=== PATIENT | female | born 1970 | race Caucasian/White ===

== ENCOUNTER 2016-09-22 17:11 | Emergency (ER) | payer OTHER ==
[~2016-09-22] VITALS: Ht 175.3 cm; Wt 100.0 kg
[~2016-09-22 17:11] MED LIST: AUGMENTIN875 MG PO; AZELASTINE137 MCG/0. BOTH NARES; Augmentin PO; BRAIN MIGHT-DH1 EACH PO; CALCIUM 500 MG1 EACH PO; CALCIUM 600 +1 EAC7 PO; CIPRO500 MG PO; CORTEF10 MG PO; DAILY VITE1 EAC1 PO; DEPAKOTE ER500 MG PO; DOCUSATE SODIU100 M1 PO; FISH OIL 1,0001 EAC7 PO; FLEXERIL10 MG PO; FLONASE16 G1 BOTH NARES; FLUOXETINE HCL40 MG PO; HYDROCORTISONE10 MG PO; KEPPRA XR500 MG PO; Keppra PO; LEVETIRACETAM750 MG PO; LEVOTHYROXINE50 MCG PO; LEVOTHYROXINE88 MCG PO; LIDODERM 5% P1 PATCH TD; LISINOPRIL20 MG PO; LISINOPRIL40 MG PO; LOVASTATIN20 MG PO; LUMIGAN 0.50 DROP/22 BOTH EYES; MULTI-DAY VITA1 EACH PO; NAPROSYN500 MG PO; NASONEX17 GM BOTH NARES; OXYCODONE HCL5 MG PO; PERCOCET 5/31 TABLET PO; PRINIVIL20 MG PO; PROAIR HFA8.5 GM IH; PROZAC20 MG PO; RISPERDAL0.5 MG PO; SYNTHROID50 MCG PO; SYNTHROID88 MCG PO; TAMIFLU75 MG PO; TEGRETOL-XR,CA200 MG PO; TEGRETOL200 MG PO; TEGretol PO; VITAMIN B-6100 MG PO; Vibramycin, Doryx PO; ZESTRIL20 MG PO; ZETIA10 MG PO; ZOFRAN4 MG PO; ZOFRAN8 MG PO; ZYRTEC10 M2 PO
[2016-09-22 18:50] LABS: INFLUENZA A VIRAL ANTIGEN NEGATIVE; INFLUENZA B VIRAL ANTIGEN NEGATIVE
[2016-09-22] MEDS ORDERED: ZOFRAN ODT4 MG PO (19:18)
[2016-09-22 19:27] LABS: POINT-OF-CARE METER ID UU13113800
[2016-09-22 20:44] LABS: HEMATOCRIT 34.5 % (36.0-46.0); MCH 31.7 PG (29.0-34.0); MCHC 32.8 G/DL (30.0-36.0); MCV 96.6 FL (83-99); MEAN PLAT.VOLUME 9.8 uM^3 (9.5-12.4); PLATELET COUNT 231 K/uL (156-360); RBC DIS.WIDTH-CV 12.8 % (11.8-14.6); RED BLOOD COUNT 3.57 M/uL (3.80-5.20); WHITE BLOOD COUNT 6.3 K/uL (4.1-10.2)
[2016-09-22 21:01] LABS: TROP-I INTERPRETATION NEGATIVE; TROPONIN-I 0.05 ng/mL (0.0-0.30)
[2016-09-22 21:06] LABS: CHLORIDE 102 mEq/L (99-109); POTASSIUM 3.8 mEq/L (3.7-5.4); SODIUM 140 mEq/L (136-147)
[2016-09-22 21:08] LABS: GLUCOSE 81 mg/dL (70-99)
[2016-09-22 21:09] LABS: ANION GAP 11 MEQ/L (2-14)
[2016-09-22 21:10] LABS: TOTAL BILIRUBIN 0.1 mg/dL (0.0-1.0)
[2016-09-22 21:12] LABS: ALKALINE PHOSPHATASE 124 IU/L (3-129); GFR ESTIMATE (CALCULATED) > 59 mL/min/
[2016-09-22 21:13] LABS: UREA NITROGEN (BUN) 13 mg/dL (9-23)
[2016-09-22 21:15] LABS: LIPASE 17 U/L (1.0-51.0)
[2016-09-22 21:21] LABS: QUANTITATIVE HCG < 4.0 MIU/ML
[2016-09-22] MEDS ORDERED: LOVASTATIN40 MG PO (23:17)
[2016-09-22] MEDS ORDERED: DEPAKOTE ER500 MG PO (23:19)
[2016-09-22] MEDS ORDERED: LEVETIRACETAM750 M1 PO (23:20)
[2016-09-22 23:41] LABS: TROP-I INTERPRETATION NEGATIVE; TROPONIN-I 0.03 ng/mL (0.0-0.30)
[2016-09-22 23:59] LABS: ADD MIUA? YES; COLOR YELLOW ((YELLOW))
[2016-09-23] LABS: BILIRUBIN NEGATIVE; BLOOD SMALL; GLUCOSE (STRIP) NEGATIVE; KETONES NEGATIVE; LEUKOCYTES NEGATIVE; NITRITE NEGATIVE; PROTEIN (STRIP) NEGATIVE; UROBILINOGEN 0.2 MG/DL (0.2-1.0)
[2016-09-23 00:37] LABS: EPITHELIAL CELLS RARE /HPF; RED BLOOD CELLS 0-5 /HPF (0-5); WHITE BLOOD CELLS RARE /HPF (0-5)
[2016-09-23 00:38] LABS: BACTERIA NONE SEEN /HPF; CASTS NONE SEEN /LPF; CRYSTALS NONE SEEN; MUCUS NONE SEEN /LPF
[2016-09-23 00:42] VITALS: BP 149/90
[2016-09-23] MEDS ORDERED: ZOFRAN ODT4 MG PO (00:46)
== END 2016-09-23 00:54 | disposition home or self-care (01) ==
LOC: EME → EDBD 17:11 → EME 17:11
PROVIDERS: Physician Assistant Medical
DX: R07.9 Chest pain, unspecified (principal); R11.2 Nausea with vomiting, unspecified; I10 Essential (primary) hypertension; E03.9 Hypothyroidism, unspecified; E78.5 Hyperlipidemia, unspecified; E11.9 Type 2 diabetes mellitus without complications
CPT/HCPCS: 80053; 81003; 82948; 83690; 84484; 84702; 85027; 87502; 87651 90; 93005; 99281; 99284; J7030

== ENCOUNTER 2016-12-29 15:47 | Emergency (ER) | payer OTHER ==
[~2016-12-29] VITALS: Ht 180.3 cm; Wt 95.5 kg
[~2016-12-29 15:47] MED LIST changes: +LEVETIRACETAM750 M1 PO; +LOVASTATIN40 MG PO; +ZOFRAN ODT4 MG PO
[2016-12-29 16:37] LABS: POINT-OF-CARE METER ID UU13113778
[2016-12-29 16:45] LABS: HEMATOCRIT 38.4 % (36.0-46.0); MCH 31.5 PG (29.0-34.0); MCHC 34.4 G/DL (30.0-36.0); MEAN PLAT.VOLUME 9.7 uM^3 (9.5-12.4); PLATELET COUNT 265 K/uL (156-360); RBC DIS.WIDTH-CV 11.8 % (11.8-14.6); RBC DIS.WIDTH-SD 39.8 % (39-53); WHITE BLOOD COUNT 7.9 K/uL (4.1-10.2)
[2016-12-29 16:50] LABS: ADD MIUA? YES; BILIRUBIN NEGATIVE; BLOOD MODERATE; COLOR YELLOW ((YELLOW)); GLUCOSE (STRIP) NEGATIVE; KETONES 5; LEUKOCYTES NEGATIVE; NITRITE NEGATIVE; PROTEIN (STRIP) NEGATIVE; SPECIFIC GRAVITY 1.017 (1.000-1.030); UROBILINOGEN 0.2 MG/DL (0.2-1.0)
[2016-12-29 16:54] LABS: CHLORIDE 92 mEq/L (99-109); POTASSIUM 5.4 mEq/L (3.7-5.4); SODIUM 132 mEq/L (136-147)
[2016-12-29 16:55] LABS: MCV 91.6 FL (83-99); RED BLOOD COUNT 4.19 M/uL (3.80-5.20)
[2016-12-29 16:56] LABS: GLUCOSE 114 mg/dL (70-99)
[2016-12-29 16:57] LABS: ANION GAP 14 MEQ/L (2-14)
[2016-12-29 16:58] LABS: TOTAL BILIRUBIN 0.3 mg/dL (0.0-1.0)
[2016-12-29 16:59] LABS: ALKALINE PHOSPHATASE 81 IU/L (3-129)
[2016-12-29 17:00] LABS: GFR ESTIMATE (CALCULATED) > 59 mL/min/
[2016-12-29 17:01] LABS: UREA NITROGEN (BUN) 14 mg/dL (9-23)
[2016-12-29 17:06] LABS: BACTERIA RARE /HPF; EPITHELIAL CELLS 1+ /HPF; MUCUS NONE SEEN /LPF; RED BLOOD CELLS 0-5 /HPF (0-5); UCUL ADDED? NO; WHITE BLOOD CELLS 0-5 /HPF (0-5)
[2016-12-29 17:08] LABS: QUANTITATIVE HCG < 4.0 MIU/ML
[2016-12-29 17:51] LABS: LIPASE 20 U/L (1.0-51.0)
[2016-12-29] MEDS ORDERED: ZOFRAN4 MG PO (21:34)
[2016-12-29 22:31] VITALS: BP 132/74
== END 2016-12-29 22:34 | disposition home or self-care (01) ==
LOC: EME 15:47
DX: E05.90 Thyrotoxicosis, unspecified without thyrotoxic crisis or storm (principal); R11.2 Nausea with vomiting, unspecified; E87.1 Hypo-osmolality and hyponatremia; R10.9 Unspecified abdominal pain; I10 Essential (primary) hypertension; E03.9 Hypothyroidism, unspecified; E78.5 Hyperlipidemia, unspecified; F32.9 Major depressive disorder, single episode, unspecified; J45.909 Unspecified asthma, uncomplicated; G40.909 Epilepsy, unspecified, not intractable, without status epilepticus
CPT/HCPCS: 74177; 80053; 81003; 82948; 83690; 84443; 84702; 85027; 99281; 99284; J2405; J7030

== ENCOUNTER 2017-06-15 01:40 | Emergency (ER) | payer OTHER ==
[~2017-06-15] VITALS: Ht 180.3 cm; Wt 94.1 kg
[2017-06-15 03:32] LABS: EOSINOPHIL (%) 2.8 % (0-5); EOSINOPHIL COUNT 0.2 K/uL (0-0.3); HEMATOCRIT 32.4 % (36.0-46.0); IMMATURE GRANULOCYTE (%) 0.3 % (0.0-0.7); INSTRUMENT ABS NEUTROPHIL CT 2.2 K/uL; LYMPHOCYTE COUNT 3.1 K/uL (1.0-2.8); MCH 31.7 PG (29.0-34.0); MCV 95.9 FL (83-99); MEAN PLAT.VOLUME 9.6 uM^3 (9.5-12.4); MONOCYTE COUNT 0.7 K/uL (0-0.8); NEUTROPHIL (%) 35.5 % (45-76); NEUTROPHIL COUNT 2.2 K/uL (1.8-6.4); PLATELET COUNT 220 K/uL (156-360); RBC DIS.WIDTH-CV 12.1 % (11.8-14.6); RBC DIS.WIDTH-SD 42.6 % (39-53); RED BLOOD COUNT 3.38 M/uL (3.80-5.20); WHITE BLOOD COUNT 6.1 K/uL (4.1-10.2)
[2017-06-15 03:41] LABS: CHLORIDE 100 mEq/L (99-109); POTASSIUM 3.6 mEq/L (3.7-5.4); SODIUM 138 mEq/L (136-147)
[2017-06-15 03:43] LABS: GLUCOSE 122 mg/dL (70-99)
[2017-06-15 03:44] LABS: ANION GAP 11 MEQ/L (2-14)
[2017-06-15 03:46] LABS: GFR ESTIMATE (CALCULATED) > 59 mL/min/
[2017-06-15 03:47] LABS: UREA NITROGEN (BUN) 15 mg/dL (9-23)
[2017-06-15 03:49] LABS: CREATINE KINASE 118 IU/L (1-294)
[2017-06-15 06:05] VITALS: BP 130/70
== END 2017-06-15 06:06 | disposition home or self-care (01) ==
LOC: EME → EDBD 01:40 → EME 06:06
PROVIDERS: Emergency Medicine
DX: G40.909 Epilepsy, unspecified, not intractable, without status epilepticus (principal); J45.909 Unspecified asthma, uncomplicated; I10 Essential (primary) hypertension; F32.9 Major depressive disorder, single episode, unspecified; F41.9 Anxiety disorder, unspecified; E03.9 Hypothyroidism, unspecified; Z87.820 Personal history of traumatic brain injury
CPT/HCPCS: 70450; 80048; 80164; 82550; 85025; 99281; 99283

== ENCOUNTER 2017-11-28 17:21 | Emergency (ER) | payer OTHER ==
[~2017-11-28] VITALS: Ht 180.3 cm; Wt 104.1 kg
[2017-11-28 18:46] LABS: CARBAMAZEPINE (TEGRETOL) 7.4 MCG/ML (4.0-12.0)
[2017-11-28] MEDS ORDERED: KEPPRA750 MG PO (19:49)
[2017-11-28 20:27] VITALS: BP 138/81
== END 2017-11-28 20:32 | disposition home or self-care (01) ==
LOC: EME 17:21
PROVIDERS: Physician Assistant
DX: G40.909 Epilepsy, unspecified, not intractable, without status epilepticus (principal); I10 Essential (primary) hypertension; E03.9 Hypothyroidism, unspecified; J45.909 Unspecified asthma, uncomplicated; F32.9 Major depressive disorder, single episode, unspecified; F41.9 Anxiety disorder, unspecified; Z98.890 Other specified postprocedural states; Z87.820 Personal history of traumatic brain injury
CPT/HCPCS: 80156; 80164; 99281; 99285